=== PATIENT | female | born 1995 | race Caucasian/White ===

== ENCOUNTER 2016-11-25 23:00 | Emergency (ER) | payer OTHER ==
[2016-11-25 23:19] VITALS: BP 117/79
--- NOTE | 2016-11-25 23:36 | EDM.PDOC ---
ED HPI GI/ABDOMINAL - General Chief Complaint: Genitourinary Problem Stated Complaint: POSS UTI Time Seen by Provider: 11/25/16 23:26 - History of Present Illness INITIAL COMMENTS - FREE TEXT/NARRATIVE: 21-year-old female presents emergency room with discomfort with urination. She also wonders if she is . The patient has been having intermittent discomfort with urination not necessarily frequency. When she goes she doesn't feel like she empties all the way. This is not associated with any fevers or chills no nausea or vomiting or other gastrointestinal symptoms. Her last period was 5 weeks ago. - Related Data Allergies/ADRs: Allergies Allergy/AdvReac Type Severity Reaction Status Date / Time No Known Allergies Allergy Verified 11/25/16 23:19 Home Meds: Home Meds . [No Known Home Meds] 11/25/16 [History] Past Medical History - Past Health History Medical/Surgical History: Denies Medical/Surgical History Social & Family History - Tobacco Use Smoking Status *Q: Current Every Day Smoker Years of Tobacco use: 4 Packs/Tins Daily: 1 - Caffeine Use Caffeine Use: Reports: Energy drinks - Recreational Drug Use Recreational Drug Use: No ED ROS GENERAL - Review of Systems Review Of Systems: See Below Constitutional: Reports: no symptoms. Denies: fever, chills HEENT: Reports: No symptoms Respiratory: Reports: No Symptoms Cardiovascular: Reports: No symptoms GI/Abdominal: Reports: No symptoms : Reports: dysuria. Denies: flank pain, frequency, hematuria, incontinence, urgency ED EXAM, GI/ABD - Physical Exam Exam: See Below Exam Limited By: No limitations General Appearance: alert, no apparent distress Head: atraumatic, normocephalic Neck: normal inspection, supple, non-tender, full range of motion Respiratory/Chest: no respiratory distress, lungs clear, normal breath sounds Cardiovascular: regular rate, rhythm, no edema, no murmur GI/Abdominal: normal bowel sounds, soft, no organomegaly, no distention, no abnormal bruit, no mass, other (He has a mild suprapubic discomfort). No: distention, guarding, rebound, rigidity Course - Vital Signs Last Recorded V/S: Last Vital Signs Temp 36.3 C 11/25/16 23:16 Pulse 83 11/25/16 23:16 Resp 18 11/25/16 23:16 BP 117/79 11/25/16 23:16 Pulse Ox 98 11/25/16 23:16 - Orders/Labs/Meds Labs: Laboratory Tests 11/25/16 11/25/16 Range/Units 23:20 23:20 Urine Color Yellow (Yellow) Urine Appearance Clear (Clear) Urine pH 7.0 (5.0-8.0) Ur Specific [place] 1.015 (1.005-1.030) Urine Protein Negative (Negative) Urine Glucose (UA) Negative (Negative) Urine Ketones Negative (Negative) Urine Occult Blood Negative (Negative) Urine Nitrite Negative (Negative) Urine Bilirubin Negative (Negative) Urine Urobilinogen 0.2 (0.2-1.0) Ur Leukocyte Esterase Negative (Negative) Urine RBC 0-5 (0-5) /hpf Urine WBC 0-5 (0-5) /hpf Ur Epithelial Cells 0-5 (0-5) /hpf Urine Bacteria Rare (FEW) /hpf Urine Mucus Few (FEW) /hpf Urine HCG, Qual Negative (NEGATIVE) - Re-Assessments/Exams Free Text/Narrative Re-Assessment/Exam: 11/26/16 00:37 Urinalysis is unremarkable hCG is negative. With further discussion with the patient doesn't sound like she's drinking enough water we will have her work with this. Followup in the clinic Departure - Departure Time of Disposition: 00:38 Disposition: Home, Self-Care 01 Clinical Impression: Dysuria Referrals: PCP,None [Primary Care Provider] - Forms: ED Department Discharge Additional Instructions: Return to emergency room if any questions or problems. Followup in the hospital clinic clinic in 2-3 days for recheck and to recheck a urinalysis. [phone] Increase your fluid intake, you should be voiding every hour and a half during the day.
== END 2016-11-26 00:44 | disposition home or self-care (01) ==
LOC: JD.ED 23:00
DX: R30.0 Dysuria (principal); F17.210 Nicotine dependence, cigarettes, uncomplicated
CPT/HCPCS: 81001; 81025; 99282; 99283

== ENCOUNTER 2017-01-27 22:03 | Emergency (ER) | payer OTHER ==
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
[2017-01-28] MEDS ORDERED: Ibuprofen 600 MG Tab PO ONE (00:05)
[2017-01-28 00:47] VITALS: BP 122/79
--- NOTE | 2017-01-28 07:17 | CT ---
CT cervical spine Technique: Multiple axial sections were obtained from above C1 inferiorly to the bottom of T2. Reconstructed sagittal and coronal images were reviewed. Findings: Vertebral body heights and disc spaces are preserved. Mastoid sinuses and middle ear cavities are clear. Posterior skull base is intact. Vertebral bodies and posterior arches are intact with no fracture being seen. No bony central or bony neural foraminal stenosis is noted. No abnormal subluxation is seen on the reconstructed sagittal images. Impression: 1. No abnormality is identified on CT study of the cervical spine. Diagnostic code #1 I agree with preliminary report issued by [email or web address] ([facility] preliminary report dictated on 01/27/17, 11:58 PM Central Time)
--- NOTE | 2017-01-28 07:17 | CT ---
CT facial bones Technique: Multiple axial sections were obtained from above the frontal sinuses inferiorly through the mandible. Reconstructed coronal and sagittal images were also obtained. Findings: Right and left globes are symmetric. Paranasal sinuses are clear. No facial bone fracture is appreciated. Minimal nasal septal deviation is seen which is incidental. Impression: 1. Incidental nasal septal deviation. 2. Nothing acute is identified. Diagnostic code #2 I agree with preliminary report issued by [facility] ([facility] preliminary report dictated on 01/28/17, 12:00 a.m. Central Time)
== END 2017-01-28 00:35 | disposition home or self-care (01) ==
LOC: JD.ED 22:03
DX: S00.83XA Contusion of other part of head, initial encounter (principal); M54.2 Cervicalgia; F17.210 Nicotine dependence, cigarettes, uncomplicated; Y04.2XXA Assault by strike against or bumped into by another person, initial encounter
CPT/HCPCS: 70486; 72125; 99285; A9270; 99284

== ENCOUNTER 2017-09-02 13:38 | Emergency (ER) | payer OTHER ==
[2017-09-02 13:54] VITALS: BP 110/72
--- NOTE | 2017-09-02 14:43 | EDM.PDOC ---
ED HPI GENERAL MEDICAL PROBLEM - General Chief Complaint: ENT Problem Stated Complaint: POSS. EAR INFECTION Time Seen by Provider: 09/02/17 14:13 Source of Information: Reports: Patient History Limitations: Reports: No Limitations - History of Present Illness INITIAL COMMENTS - FREE TEXT/NARRATIVE: 22 year old female presents for evaluation and treatment of possible ear infection. Patient reports her ears have been hurting for the last 2 weeks. Reports both are causing her discomfort but the left one seems to be worse. She reports yesterday evening she developed body aches, nausea, sore throat, headaches, fevers, chills, a dry cough and a decreased appetite. No vomiting, abdominal pain, dysuria or diarrhea. She has not taken her temperature but states she felt warm. No influenza vaccine this season. Patient reports her last menstrual cycle started about 1 week ago. She reports normal menstrual cycle states that it should've ended by now but she has now appreciating darker, black blood. Back Pain Score (Numeric/FACES): 8 - Related Data Allergies Allergy/AdvReac Type Severity Reaction Status Date / Time No Known Allergies Allergy Verified 09/02/17 13:50 Home Meds: Home Meds . [No Known Home Meds] 11/25/16 [History] Past Medical History - Past Health History Medical/Surgical History: Denies Medical/Surgical History Psychiatric History: Reports: Depression - Past Surgical History HEENT Surgical History: Reports: Oral Surgery Social & Family History - Family History Family Medical History: Noncontributory - Tobacco Use Smoking Status *Q: Current Every Day Smoker Years of Tobacco use: 5 Packs/Tins Daily: 0.5 - Caffeine Use Caffeine Use: Reports: Energy Drinks - Recreational Drug Use Recreational Drug Use: No - Living Situation & Occupation Living situation: Reports: Single, 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 Denies: Sputum GI/Abdominal: Reports: Nausea. Denies: Abdominal Pain, Diarrhea, Vomiting : Denies: Dysuria Neurological: Reports: Headache ED EXAM, ENT - Physical Exam Exam: See Below Exam Limited By: No Limitations General Appearance: Alert, WD/WN, No Apparent Distress (acutely ill appearing) Eye Exam: Bilateral Eye: Normal Inspection Ears: Normal External Exam, Normal Canal, Hearing Grossly Normal, Normal TMs. No: TM Bulging, TM Erythema Nose: Normal Inspection Mouth/Throat: Normal Inspection, Normal Gums, Normal Lips, Normal Oropharynx, Normal Teeth, Pharyngeal Erythema. No: Throat Swelling, Tonsillar Exudates Neck: Normal Inspection, Supple, Non-Tender, Lymphadenopathy (L), Lymphadenopathy (R) Respiratory/Chest: No Respiratory Distress, Lungs Clear, Normal Breath Sounds Cardiovascular: Normal Peripheral Pulses, No Murmur, Tachycardia GI/Abdominal: Normal Bowel Sounds, Soft, Non-Tender Neurological: Alert, Oriented, Normal Cognition Psychiatric: Normal Affect, Normal Mood Skin: Warm, Dry, Normal Color Course - Vital Signs Last Recorded V/S: Last Vital Signs Temp 36.3 C 09/02/17 13:50 Pulse 110 H 09/02/17 13:50 Resp 18 09/02/17 13:50 BP 110/72 09/02/17 13:50 Pulse Ox 99 09/02/17 13:50 - Orders/Labs/Meds Orders: Active Orders 24 hr Category Date Time Status CULTURE STREP A CONFIRMATION [RM] Stat Lab 09/02/17 16:40 Results STREP SCRN A RAPID W CULT CONF [RM] Stat Lab 09/02/17 16:40 Results Labs: Laboratory Tests 09/02/17 09/02/17 09/02/17 Range/Units 14:30 14:30 16:06 WBC 3.54 L (3.98-10.04) K/mm3 RBC 4.63 (3.98-5.22) M/mm3 Hgb 10.1 L (11.2-15.7) gm/L Hct 32.2 L (34.1-44.9) % MCV 69.5 L (79.4-94.8) fl MCH 21.8 L (25.6-32.2) pg MCHC 31.4 L (32.2-35.5) g/dl RDW Std Deviation 40.1 (36.4-46.3) fL Plt Count 248 (182-369) K/mm3 MPV 9.2 L (9.4-12.3) fl Neutrophils % (Manual) 74 H (40-60) % Band Neutrophils % 0 (0-10) % Lymphocytes % (Manual) 14 L (20-40) % Atypical Lymphs % 0 % Monocytes % (Manual) 12 H (2-10) % Eosinophils % (Manual) 0 L (0.7-5.8) % Basophils % (Manual) 0 L (0.1-1.2) Platelet Estimate Adequate Plt Morphology Comment Normal Hypochromasia 2+ moderate Poikilocytosis 2+ moderate Microcytosis 3+ marked RBC Morph Comment Not Reportable Sodium (136-145) mEq/L Potassium (3.5-5.1) mEq/L Chloride (98-107) mEq/L Carbon Dioxide (21-32) mEq/L Anion Gap (5-15) BUN (7-18) mg/dL Creatinine (0.55-1.02) mg/dL Est Cr Clr Drug Dosing mL/min Estimated GFR (MDRD) (>60) mL/min BUN/Creatinine Ratio (14-18) Glucose (74-106) mg/dL Calcium (8.5-10.1) mg/dL C-Reactive Protein (<1.0) mg/dL Urine Color Yellow (Yellow) Urine Appearance Clear (Clear) Urine pH 6.0 (5.0-8.0) Ur Specific [place] > or = 1.030 (1.005-1.030) Urine Protein Trace H (Negative) Urine Glucose (UA) Negative (Negative) Urine Ketones 4+ H (Negative) Urine Occult Blood 2+ H (Negative) Urine Nitrite Negative (Negative) Urine Bilirubin 1+ H (Negative) Urine Urobilinogen 0.2 (0.2-1.0) Ur Leukocyte Esterase Negative (Negative) Urine RBC 0-5 (0-5) /hpf Urine WBC 0-5 (0-5) /hpf Ur Epithelial Cells 0-5 (0-5) /hpf Urine Bacteria Few (FEW) /hpf Urine Mucus Not seen (FEW) /hpf Urine HCG, Qual Negative (NEGATIVE) 09/02/17 09/02/17 Range/Units 16:06 16:06 WBC (3.98-10.04) K/mm3 RBC (3.98-5.22) M/mm3 Hgb (11.2-15.7) gm/L Hct (34.1-44.9) % MCV (79.4-94.8) fl MCH (25.6-32.2) pg MCHC (32.2-35.5) g/dl RDW Std Deviation (36.4-46.3) fL Plt Count (182-369) K/mm3 MPV (9.4-12.3) fl Neutrophils % (Manual) (40-60) % Band Neutrophils % (0-10) % Lymphocytes % (Manual) (20-40) % Atypical Lymphs % % Monocytes % (Manual) (2-10) % Eosinophils % (Manual) (0.7-5.8) % Basophils % (Manual) (0.1-1.2) Platelet Estimate Plt Morphology Comment Hypochromasia Poikilocytosis Microcytosis RBC Morph Comment Sodium 136 (136-145) mEq/L Potassium 3.8 (3.5-5.1) mEq/L Chloride 104 (98-107) mEq/L Carbon Dioxide 22 (21-32) mEq/L Anion Gap 13.8 (5-15) BUN 12 (7-18) mg/dL Creatinine 0.9 (0.55-1.02) mg/dL Est Cr Clr Drug Dosing 95.59 mL/min Estimated GFR (MDRD) > 60 (>60) mL/min BUN/Creatinine Ratio 13.3 L (14-18) Glucose 84 (74-106) mg/dL Calcium 9.0 (8.5-10.1) mg/dL C-Reactive Protein 3.2 H* (<1.0) mg/dL Urine Color (Yellow) Urine Appearance (Clear) Urine pH (5.0-8.0) Ur Specific [place] (1.005-1.030) Urine Protein (Negative) Urine Glucose (UA) (Negative) Urine Ketones (Negative) Urine Occult Blood (Negative) Urine Nitrite (Negative) Urine Bilirubin (Negative) Urine Urobilinogen (0.2-1.0) Ur Leukocyte Esterase (Negative) Urine RBC (0-5) /hpf Urine WBC (0-5) /hpf Ur Epithelial Cells (0-5) /hpf Urine Bacteria (FEW) /hpf Urine Mucus (FEW) /hpf Urine HCG, Qual (NEGATIVE) Meds: Medications Discontinued Medications Generic Name Dose Route Start Last Admin Trade Name Freq PRN Reason Stop Dose Admin Ibuprofen 600 mg 09/02/17 16:16 09/02/17 16:39 Motrin PO 09/02/17 16:17 600 mg ONETIME ONE Administration Ondansetron HCl 4 mg 09/02/17 16:16 09/02/17 16:39 Zofran Odt PO 09/02/17 16:17 4 mg ONETIME ONE Administration - Re-Assessments/Exams Free Text/Narrative Re-Assessment/Exam: 09/02/17 16:30 Influenza returned negative. reviewed the labs and imaging with the patient. No etiology has been identified as of yet. I will have nursing staff obtain a rapid strep. 09/02/17 17:00 Rapid strep returned negative. I feel this is likely a viral upper respiratory infection. It is possible that we did get a false negative influenza swab. Recommend symptomatic care. Follow up if not better. Discharge instructions as documented. Departure - Departure Time of Disposition: 17:02 Disposition: Home, Self-Care 01 Condition: Fair Clinical Impression: Viral upper respiratory infection - Discharge Information Instructions: Upper Respiratory Infection, Adult, [id number] Referrals: PCP,Unknown [Ordering Only Provider] - Forms: ED Department Discharge Additional Instructions: OTC Tylenol or Motrin as needed for headaches and fevers. Rest. Make sure drinking plenty of fluids. Follow-up with family medicine if your symptoms have not improved much within one week. Recommend Vivien Perdomo at the [facility]. Call [phone] to schedule with her. Please return to the ER if your symptoms change or worsen. - My Orders Last 24 Hours: My Active Orders 09/02/17 16:40 CULTURE STREP A CONFIRMATION [RM] Stat STREP SCRN A RAPID W CULT CONF [RM] Stat - Assessment/Plan Last 24 Hours: My Active Orders 09/02/17 16:40 CULTURE STREP A CONFIRMATION [RM] Stat STREP SCRN A RAPID W CULT CONF [RM] Stat
[2017-09-02] MEDS ORDERED: Ibuprofen 600 MG Tab PO ONE (16:16)
[2017-09-02] MEDS ORDERED: Ondansetron 4 MG Tab.DIS PO ONE (16:16)
--- NOTE | 2017-09-03 06:37 | CR ---
Chest: Two views of the chest were obtained. Comparison: No prior study. Heart size and mediastinum are normal. Lungs are clear. Minimal scoliosis is noted. Impression: 1. Nothing acute is identified on two-view chest x-ray. Diagnostic code #2
== END 2017-09-02 17:22 | disposition home or self-care (01) ==
LOC: JD.ED 13:38
DX: J06.9 Acute upper respiratory infection, unspecified (principal); F17.210 Nicotine dependence, cigarettes, uncomplicated
CPT/HCPCS: 36415; 71046; 80048; 81001; 81025; 85025; 86140; 87081; 87430; 87804; 99283; A9270; 99282

== ENCOUNTER 2019-01-21 17:43 | Emergency (ER) | payer OTHER ==
[2019-01-21 18:01] VITALS: BP 119/80
[2019-01-21] MEDS ORDERED: HYDROmorphone 0.5 MG/0.5 ML Syringe IM ONE (18:15)
[2019-01-21] MEDS ORDERED: Ondansetron 4 MG Tab.DIS PO ONE (18:15)
--- NOTE | 2019-01-21 18:29 | EDM.PDOC ---
<Carolina Stokes - Last Filed: 01/21/19 18:17> ED HPI GENERAL MEDICAL PROBLEM - General Chief Complaint: Genitourinary Problem Stated Complaint: POSS KIDNEY INFECTION...PAIN,BURNING AND DISCHARGE Time Seen by Provider: 01/21/19 18:00 Source of Information: Reports: Patient History Limitations: Reports: No Limitations - History of Present Illness INITIAL COMMENTS - FREE TEXT/NARRATIVE: Patient is a pleasant 23 year old female that presents today with complaints of severe pain in left lower quadrant of abdomen that radiates to her left flank/ back. Patient rates the pain as a 10/10 and is sharp and stabbing. She states one week ago she had a "bacterial infection" that she was treating with apple cider vinegar. Symptoms started to get better then 4 days ago pain started to come back. Today pain became progressively worse while at work, at which time she became nauseous and lightheaded. She states pain is worse with movement. She reports burning with urination and has noticed cloudy white and clumpy drainage. She denies fever/chills, and vomiting. Patient is in a heterosexual relationship with whom she is having unprotected intercourse. Onset: Gradual Onset Date: 01/18/19 Duration: Day(s): (4), Getting Worse Location: Reports: Abdomen (Left lower quadrant and radiates to left flank) Quality: Reports: Sharp, Stabbing Severity: Moderate Improves with: Reports: Rest Worsens with: Reports: Movement Associated Symptoms: Reports: Other (Nausea and lightheaded) Treatments [employer]: Reports: NSAIDS Lower Abdomen Pain Score (Numeric/FACES): 10 - Related Data Allergies Allergy/AdvReac Type Severity Reaction Status Date / Time Penicillins Allergy Cannot Verified 01/21/19 18:01 Remember Home Meds: Home Meds Ciprofloxacin [Ciprofloxacin HCl] 250 mg PO BID #10 tab 01/21/19 [Rx] Ferrous Sulfate 650 mg PO DAILY 01/21/19 [History] Norgestimate-Ethinyl Estradiol [Tri-Sprintec Tablet] 1 tab PO DAILY 01/21/19 [ History] metroNIDAZOLE [Metronidazole] 500 mg PO BID #14 tablet 01/21/19 [Rx] Past Medical History - Past Health History Medical/Surgical History: Denies Medical/Surgical History Psychiatric History: Reports: Depression - Past Surgical History HEENT Surgical History: Reports: Oral Surgery Social & Family History - Family History Family Medical History: Noncontributory - Tobacco Use Smoking Status *Q: Never Smoker - Caffeine Use Caffeine Use: Reports: None - Recreational Drug Use Recreational Drug Use: No - Living Situation & Occupation Living situation: Reports: Single, Other (Friend) 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 Denies: Chest Pain GI/Abdominal: Reports: Abdominal Pain (left lower quadrant that radiates to left flank/back). Denies: Diarrhea : Reports: Discharge (white, cloudy, clumpy), Dysuria, Flank Pain (left). Denies: Hematuria Psychiatric: Reports: No Symptoms ED EXAM, RENAL/ - Physical Exam Exam: See Below Exam Limited By: No Limitations General Appearance: Alert, No Apparent Distress Respiratory/Chest: No Respiratory Distress, Lungs Clear, Normal Breath Sounds Cardiovascular: Normal Peripheral Pulses, Regular Rate, Rhythm, No Edema, No Murmur GI/Abdominal: Normal Bowel Sounds, Soft, No Organomegaly, Guarding, Tender ( with palpation in left lower quadrant and slightly in left upper quadrant) Back Exam: Full Range of Motion, CVA Tenderness (L). No: CVA Tenderness (R) Neurological: Alert, Oriented, Normal Cognition, Normal Gait, No Motor/Sensory Deficits Psychiatric: Normal Affect, Normal Mood Skin Exam: Warm, Dry, Intact, Normal Color Course - Vital Signs Last Recorded V/S: Last Vital Signs Temp 97.7 F 01/21/19 17:59 Pulse 84 01/21/19 17:59 Resp 16 01/21/19 17:59 BP 119/80 01/21/19 17:59 Pulse Ox 99 01/21/19 17:59 - Orders/Labs/Meds Orders: Active Orders 24 hr Category Date Time Status Peripheral IV Care [RC] . DIRECTED Care 01/21/19 18:51 Ordered Abdomen Pelvis wo Cont [CT] Stat Exams 01/21/19 18:13 Ordered Sodium Chloride 0.9% [Saline Flush] Med 01/21/19 18:51 Ordered 10 ml FLUSH ASDIRECTED PRN Peripheral IV Insertion Adult [OM.PC] Routine Oth 01/21/19 18:51 Ordered Medication Orders Sodium Chloride (Saline Flush) 10 ml FLUSH ASDIRECTED PRN PRN Reason: Keep Vein Open Last Admin: 01/21/19 19:28 Dose: 10 ml Labs: Laboratory Tests 01/21/19 01/21/19 01/21/19 Range/Units 18:13 18:16 18:30 WBC 10.67 H (3.98-10.04) K/mm3 RBC 4.97 (3.98-5.22) M/mm3 Hgb 14.4 D (11.2-15.7) gm/L Hct 42.0 (34.1-44.9) % MCV 84.5 D (79.4-94.8) fl MCH 29.0 (25.6-32.2) pg MCHC 34.3 (32.2-35.5) g/dl RDW Std Deviation 37.3 (36.4-46.3) fL Plt Count 307 (182-369) K/mm3 MPV 9.4 (9.4-12.3) fl Neutrophils % (Manual) 61 H (40-60) % Band Neutrophils % 0 (0-10) % Lymphocytes % (Manual) 33 (20-40) % Atypical Lymphs % 0 % Monocytes % (Manual) 3 (2-10) % Eosinophils % (Manual) 3 (0.7-5.8) % Basophils % (Manual) 0 L (0.1-1.2) Platelet Estimate Adequate Plt Morphology Comment Normal RBC Morph Comment Normal Sodium (136-145) mEq/L Potassium (3.5-5.1) mEq/L Chloride (98-107) mEq/L Carbon Dioxide (21-32) mEq/L Anion Gap (5-15) BUN (7-18) mg/dL Creatinine (0.55-1.02) mg/dL Est Cr Clr Drug Dosing mL/min Estimated GFR (MDRD) (>60) mL/min BUN/Creatinine Ratio (14-18) Glucose (74-106) mg/dL Calcium (8.5-10.1) mg/dL C-Reactive Protein (<1.0) mg/dL Urine Color Yellow (Yellow) Urine Appearance Cloudy H (Clear) Urine pH 7.0 (5.0-8.0) Ur Specific [place] 1.020 (1.005-1.030) Urine Protein 2+ H (Negative) Urine Glucose (UA) Negative (Negative) Urine Ketones Negative (Negative) Urine Occult Blood 1+ H (Negative) Urine Nitrite Negative (Negative) Urine Bilirubin Negative (Negative) Urine Urobilinogen 1.0 (0.2-1.0) Ur Leukocyte Esterase 3+ H (Negative) Urine RBC 5-10 H (0-5) /hpf Urine WBC 50-75 H (0-5) /hpf Ur Squamous Epith Cells 0-5 (0-5) /hpf Urine Bacteria Moderate H (FEW) /hpf Urine Mucus Not seen (FEW) /hpf Urine HCG, Qual Negative (NEGATIVE) 01/21/19 01/21/19 Range/Units 18:30 18:30 WBC (3.98-10.04) K/mm3 RBC (3.98-5.22) M/mm3 Hgb (11.2-15.7) gm/L Hct (34.1-44.9) % MCV (79.4-94.8) fl MCH (25.6-32.2) pg MCHC (32.2-35.5) g/dl RDW Std Deviation (36.4-46.3) fL Plt Count (182-369) K/mm3 MPV (9.4-12.3) fl Neutrophils % (Manual) (40-60) % Band Neutrophils % (0-10) % Lymphocytes % (Manual) (20-40) % Atypical Lymphs % % Monocytes % (Manual) (2-10) % Eosinophils % (Manual) (0.7-5.8) % Basophils % (Manual) (0.1-1.2) Platelet Estimate Plt Morphology Comment RBC Morph Comment Sodium 138 (136-145) mEq/L Potassium 3.8 (3.5-5.1) mEq/L Chloride 102 (98-107) mEq/L Carbon Dioxide 25 (21-32) mEq/L Anion Gap 14.8 (5-15) BUN 7 (7-18) mg/dL Creatinine 0.9 (0.55-1.02) mg/dL Est Cr Clr Drug Dosing 95.35 mL/min Estimated GFR (MDRD) > 60 (>60) mL/min BUN/Creatinine Ratio 7.8 L (14-18) Glucose 95 (74-106) mg/dL Calcium 9.3 (8.5-10.1) mg/dL C-Reactive Protein 1.6 H* (<1.0) mg/dL Urine Color (Yellow) Urine Appearance (Clear) Urine pH (5.0-8.0) Ur Specific [place] (1.005-1.030) Urine Protein (Negative) Urine Glucose (UA) (Negative) Urine Ketones (Negative) Urine Occult Blood (Negative) Urine Nitrite (Negative) Urine Bilirubin (Negative) Urine Urobilinogen (0.2-1.0) Ur Leukocyte Esterase (Negative) Urine RBC (0-5) /hpf Urine WBC (0-5) /hpf Ur Squamous Epith Cells (0-5) /hpf Urine Bacteria (FEW) /hpf Urine Mucus (FEW) /hpf Urine HCG, Qual (NEGATIVE) Meds: Medications Generic Name Dose Route Start Last Admin Trade Name Freq PRN Reason Stop Dose Admin Sodium Chloride 10 ml 01/21/19 18:51 01/21/19 19:28 Saline Flush FLUSH 10 ml ASDIRECTED PRN Administration Keep Vein Open Discontinued Medications Generic Name Dose Route Start Last Admin Trade Name Freq PRN Reason Stop Dose Admin Hydromorphone HCl 0.5 mg 01/21/19 18:15 01/21/19 18:25 Dilaudid IM 01/21/19 18:16 0.5 mg ONETIME ONE Administration Ceftriaxone Sodium 2 gm/ 100 mls @ 200 mls/hr 01/21/19 18:52 01/21/19 19:26 Sodium Chloride IV 01/21/19 19:21 200 mls/hr Q24H ONE Administration Ondansetron HCl 4 mg 01/21/19 18:15 01/21/19 18:25 Zofran Odt PO 01/21/19 18:16 4 mg ONETIME ONE Administration Departure - Departure Disposition: Home, Self-Care 01 Clinical Impression: UTI, Urinary tract infectious disease, Bacterial vaginosis - Discharge Information Prescriptions: Ciprofloxacin [Ciprofloxacin HCl] 250 mg PO BID #10 tab metroNIDAZOLE [Metronidazole] 500 mg PO BID #14 tablet Instructions: Bacterial Vaginosis, [id number], Urinary Tract Infection, Adult , [id number] Referrals: PCP,Unknown [Primary Care Provider] - Forms: ED Department Discharge Additional Instructions: You have been evaluated in the ED today for your UTI like symptoms. Your urinalysis demonstrated that you do have a urinary tract infection, and your wet prep indicated that you had bacterial vaginosis as well. You have been provided with 2 different antibiotics, ciprofloxacin for the UTI, and metronidazole for bacterial vaginosis. Please take as directed. These have been electronically sent to the [facility]. You may pick these up tomorrow morning to begin your course of treatment. Please make note that if you drink alcohol while taking metronidazole you might develop a disulfiram reaction, which would make you feel generally sick and unwell possibly with flushing, tachycardia, and low BP to name a few side effects. Please return to the ED if your symptoms should change or worsen. - My Orders Last 24 Hours: My Active Orders 01/21/19 18:13 Abdomen Pelvis wo Cont [CT] Stat 01/21/19 18:51 Peripheral IV Care [RC] . DIRECTED Sodium Chloride 0.9% [Saline Flush] 10 ml FLUSH ASDIRECTED PRN Peripheral IV Insertion Adult [OM.PC] Routine - Assessment/Plan Last 24 Hours: My Active Orders 01/21/19 18:13 Abdomen Pelvis wo Cont [CT] Stat 01/21/19 18:51 Peripheral IV Care [RC] . DIRECTED Sodium Chloride 0.9% [Saline Flush] 10 ml FLUSH ASDIRECTED PRN Peripheral IV Insertion Adult [OM.PC] Routine <Marie Gordon - Last Filed: 01/21/19 20:49> ED HPI GENERAL MEDICAL PROBLEM - History of Present Illness INITIAL COMMENTS - FREE TEXT/NARRATIVE: I have read and reviewed the student's HPI and examined the patient and agree with CLARK Boone student. Course - Re-Assessments/Exams Free Text/Narrative Re-Assessment/Exam: 01/21/19 18:13 Patient presents to the ED for evaluation of UTI like symptoms. Have ordered a UA, urine hCG, CBC, BMP, and an abdomen pelvis without contrast for evaluation of a possible pyelo versus kidney stone at this time. Have also ordered 0.5 mg IM Dilaudid and 4 mg ODT Zofran for initial management. 01/21/19 18:55 Patient's UA is back and is suggestive of a UTI. We will give 2 g Rocephin IV to start with. 01/21/19 19:[address] is back and read per V-rad, it does not demonstrate any sort of kidney stones, pelvic abnormalities, or any sign of the pyelonephritis at this time. Departure - Departure Time of Disposition: 20:44 Condition: Fair - Discharge Information *PRESCRIPTION DRUG MONITORING PROGRAM REVIEWED*: No *COPY OF PRESCRIPTION DRUG MONITORING REPORT IN PATIENT MACARIO: No
[2019-01-21] MEDS ORDERED: Sodium Chloride 0.9% 10 ML Syringe FLUSH PRN (18:51)
[2019-01-21] MEDS ORDERED: cefTRIAXone 2 GM in Sodium Chloride 0.9% 100 ML IV ONE (18:52)
--- NOTE | 2019-01-22 09:00 | CT ---
CT abdomen and pelvis Technique: Multiple axial sections were obtained from above the dome of the diaphragm inferiorly through the pubic symphysis. Intravenous and oral contrast was not utilized. Study has been performed as a ureteral stone protocol. Comparison: No prior abdominal imaging. Findings: Small portion of the visualized lung bases showed nothing acute. Noncontrast appearance of the liver and spleen appears within normal limits. Adrenal glands show no nodule. Upper left kidney shows an exophytic hyperdense nodule measuring 1.4 cm which is most likely due to small hemorrhagic cyst. Second lesion is seen within the right kidney in a cortical location measuring approximately 4 mm. This is most likely due to an additional small hemorrhagic cyst. Kidneys show no abnormal calcifications. No ureteral dilatation or ureteral stone is seen. No discrete pancreatic abnormality is seen. Gallbladder contains no calcified gallstones. Aorta shows no aneurysm. No retroperitoneal adenopathy is seen. Appendix is seen and is normal in size. No pelvic mass or adenopathy is seen. No free fluid or inflammatory change is seen. Bone window settings were reviewed which appear within normal limits for the patient's age. Impression: 1. Small hyperdense finding within each kidney most likely representing small hemorrhagic cysts. 2. No renal calculi, ureteral dilatation or ureteral stone is seen. 3. Other normal findings as noted above. Diagnostic code #2 I agree with preliminary report from [facility], finalized on 01/21/19, 8:00 PM Central Time
== END 2019-01-21 21:00 | disposition home or self-care (01) ==
LOC: JD.ED 17:43
DX: N39.0 Urinary tract infection, site not specified (principal); N76.0 Acute vaginitis; B96.89 Other specified bacterial agents as the cause of diseases classified elsewhere; F32.9 Major depressive disorder, single episode, unspecified; Z88.0 Allergy status to penicillin; Z79.899 Other long term (current) drug therapy
CPT/HCPCS: 36415; 74176; 80048; 81001; 81025; 85007; 85027; 86140; 87210; 87808; 96365; 96372; 99284; A9270; J0696; J1170; J7030

== ENCOUNTER 2023-01-07 00:08 | Emergency (ER) | payer MEDICAID | END 2023-01-07 00:15 | LOC: JD.ED 00:08 | DX: Z53.21 Procedure and treatment not carried out due to patient leaving prior to being seen by health care provider (principal) ==

== ENCOUNTER 2024-12-31 08:21 | Emergency (ER) | payer SELFPAY ==
[2024-12-31 09:14] LABS: APPEARANCE,URINE CLEAR (Clear); BILIRUBIN,URINE NEGATIVE (Negative); COLOR,URINE LIGHT YELLOW (Yellow); GLUCOSE,URINE NEGATIVE (Negative); KETONES,URINE NEGATIVE (Negative); LEUKOCYTE ESTERASE,URINE 1+ (Negative); NITRITE,URINE NEGATIVE (Negative); OCCULT BLOOD,URINE NEGATIVE (Negative); PROTEIN,URINE NEGATIVE (Negative); UROBILINOGEN,URINE 0.2 (0.2-1.0)
[2024-12-31 09:22] LABS: BARBITURATE SCREEN,URINE NEGATIVE (CUTOFF=200); BENZODIAZEPINES SCREEN,URINE NEGATIVE (CUTOFF=150); BUPRENORPHINE SCREEN,URINE NEGATIVE (CUTOFF=10); METHADONE SCREEN, URINE NEGATIVE (CUTOFF=200); METHAMPHETAMINES SCREEN, URINE NEGATIVE (CUTOFF=500); OXYCODONE SCREEN,URINE NEGATIVE (CUT0FF=100); THC SCREEN,URINE 20 NG/ML PRESUMPTIVE POSITIVE (CUTOFF=50)
[2024-12-31 09:24] LABS: BASOPHILS PERCENT AUTO 0.6 % (0.0-1.0); EOSINOPHILS PERCENT AUTO 0.4 % (0.0-6.0); HEMATOCRIT 40.7 % (37.0-47.0); HEMOGLOBIN 13.4 gm/dl (12.0-16.0); IMMATURE GRAN ABSOLUTE AUTO 0.02 K/mm3 (0.00-0.05); IMMATURE GRAN PERCENT AUTO 0.3 % (0.0-0.4); LYMPHOCYTES PERCENT AUTO 28.6 % (24.0-44.0); MEAN CORPUSCULAR HEMOGLOBIN 26.7 pg (28.0-32.0); MEAN CORPUSCULAR HGB CONC 32.9 g/dl (32.0-36.0); MEAN CORPUSCULAR VOLUME 81.1 fl (83.0-99.0); MEAN PLATELET VOLUME 8.7 fl (9.4-12.3); MONOCYTES ABSOLUTE AUTO 0.5 K/mm3 (0.0-0.8); MONOCYTES PERCENT AUTO 7.5 % (0.0-8.0); NEUTROPHILS ABSOLUTE AUTO 4.5 K/mm3 (1.8-7.7); NEUTROPHILS PERCENT AUTO 62.6 % (41.0-71.0); PLATELET COUNT,PLT 307 K/mm3 (150-400); RED BLOOD CELL COUNT 5.02 M/mm3 (4.10-5.30)
[2024-12-31 09:25] LABS: AMPHETAMINES SCREEN, URINE NEGATIVE (CUTOFF=500)
[2024-12-31 09:28] LABS: BACTERIA,URINE MODERATE /hpf (FEW); MUCUS,URINE FEW /hpf (FEW); RBC,URINE 0-5 /hpf (0-5)
[2024-12-31 09:44] LABS: A/G RATIO 1.1 (1-2); ALBUMIN 3.8 g/dl (3.4-5.0); ANION GAP 18.9 (5-15); BILIRUBIN TOTAL 0.6 mg/dL (0.2-1.0); BUN/CREATININE RATIO 15.6 (14-18); CALCIUM 9.2 mg/dL (8.5-10.1); CREATININE 0.9 mg/dL (0.55-1.02); EST CRCL DRUG DOSING (CG) 73.6 mL/min; POTASSIUM,K 3.9 mEq/L (3.5-5.1); PROTEIN TOTAL,TP 7.4 g/dl (6.4-8.2)
[2024-12-31 10:21] LABS: ETHANOL BLOOD MEDICAL 0.1 gm% (0.00); TSH 1.69 uIU/mL (0.358-3.74)
[2024-12-31 16:27] VITALS: BP 106/66; PULSE 82
== END 2024-12-31 15:05 ==
LOC: JD.ED 08:21
DX: F32.A Depression, unspecified (principal); R45.851 Suicidal ideations; Z88.0 Allergy status to penicillin; Z79.899 Other long term (current) drug therapy
CPT/HCPCS: 36415; 80053; 80143; 80179; 80306; 80307; 81001; 84443; 84702; 85025; 87086; 93005; 99285